=== PATIENT | male | born 1980 | race Caucasian/White ===

== ENCOUNTER → 2016-05-12 | Outpatient (CLI) | payer MEDICAID ==
[~2016-05-12] MED LIST: GADOBUTROL 10mMol/10ml INJECTION IV ONE; HYDR25TA85 PO; IBUP-1724 PO; LORA-204 PO; OMEP-122 PO; POTA-81 PO; PROP20TA7 PO; RIVA15TA PO; SALINE FLUSH 10ml SYRINGE ONE; SUCR1TAB20 PO
--- NOTE | 2016-05-12 15:59 | DI ---
Indication: ITS.REASON: SEIZURE; TREMOR; ALCOHOL ABUSE PROCEDURE: MRI BRAIN W/WO CONTRAST: Encounter: Initial Comparisons: Head CT dated March 19, 2016 Technique: Multiplanar, multisequence, MR imaging of the head with and without contrast was acquired. Contrast: 8.5 mL of Gadavist FINDINGS: Exam is severely limited by motion artifact. The ventricles are of normal size, shape, and contour for the patient's age. There is some suggestion of increased T2/FLAIR signal intensity in the mesial temporal lobes on the coronal views although they are severely limited by motion artifact. The brain stem, cerebellum, and cerebral hemispheres otherwise have a normal morphologic appearance as well as MR signal intensity on all pulse sequences. Following intravenous administration of contrast, no areas of abnormal enhancement are evident. There are no areas of restricted diffusion to suggest an acute infarct. There is no gross evidence of an intracranial mass lesion, intracranial hemorrhage, or hydrocephalus. The visualized portions of the orbits, calvarium, paranasal sinuses, and skull base demonstrate no significant abnormality. IMPRESSION: Severely limited exam due to motion artifact. 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 .
== END ==
LOC: IMA 12:37
PROVIDERS: ATTEND Psychiatry & Neurology Neurology
DX: G40.209 Localization-related (focal) (partial) symptomatic epilepsy and epileptic syndromes with complex partial seizures, not intractable, without status epilepticus (principal); F10.10 Alcohol abuse, uncomplicated
CPT/HCPCS: 70553; A9585

== ENCOUNTER → 2016-05-12 | Outpatient (CLI) | payer MEDICAID ==
[~2016-05-12] MED LIST changes: -GADOBUTROL 10mMol/10ml INJECTION IV ONE; -SALINE FLUSH 10ml SYRINGE ONE
== END ==
LOC: NEU 12:40
PROVIDERS: ATTEND Psychiatry & Neurology Neurology
DX: G40.209 Localization-related (focal) (partial) symptomatic epilepsy and epileptic syndromes with complex partial seizures, not intractable, without status epilepticus (principal); R94.01 Abnormal electroencephalogram [EEG]
CPT/HCPCS: 95816